=== PATIENT | male | born 1985 | race Asian ===

== ENCOUNTER 2018-04-10 13:52 | Emergency (ER) | payer OTHER ==
[~2018-04-10] VITALS: Ht 180.3 cm; Wt 95.3 kg
--- NOTE | 2018-04-10 15:02 | NUR ---
PT IS IN ROOM #2A. DR TAYLOR EVALUATED THE PT. DR VASHTI BEAVER ) WAS CALLED FOR CONSULT. MESSAGE WAS LEFT. PT IS RESTING IN BED , PARENTS AT THE BEDSIDE.
--- NOTE | 2018-04-10 15:10 | NUR ---
PT STATED THAT [employer] OFFICERS CAME AT THE TIME WHEN THE ACCIDENT HAPPEND. THEY TALKED TO HIM. PT STATED TO POLICE THAT HE DOES NOT WANT TO PRESS CHARGES AGAINST ANYBODY. [employer] OFFICERS TALKED TO THE PT AND LEFT.
--- NOTE | 2018-04-10 15:17 | NUR ---
[facility] WAS CALLED FOR HIGHYER LEVEL OF CARE TRNSFER. TELKED TO ER [employer] [employer] INSTRUCTOR. DR TAYLOR GAVE PT'S INFORMATION TO [facility] SUPERVISOR CONTACT AND SERVICE CLERKS.
--- NOTE | 2018-04-10 15:31 | NUR ---
DR TAYLOR DISCUSSED PT's CASE WITH DR VASHTI BEAVER.
--- NOTE | 2018-04-10 16:02 | NUR ---
[facility] WAS CALLED ([phone]) FOR PT TRNASFER. TALKED TO TRANSFER CENTER REPRESENTSTIVE, THEY DO NOT HAVE ACCEPTING OFTALMOLOGIST. DR TAYLOR NOTIFIED.
--- NOTE | 2018-04-10 16:35 | NUR ---
[facility] WAS KALLED , TALKED TO YOGESH. SHE STATED THEY DO NOT HAVE AVAILABLE BEDS NOW.
--- NOTE | 2018-04-10 16:49 | NUR ---
[facility] WAS CALLED, SPOKE TO ABIGAIL. DR TAYLOR SPOKE TO SIDING INSTALLER ABIGAIL. PT's INFORMATION WAS FAXED ([phone]) TO [facility].
--- NOTE | 2018-04-10 16:56 | NUR ---
Received call from Niru at [facility]. Patient NOT accepted due to "no ophthalmalogist" available at that location. ERMD notified.
--- NOTE | 2018-04-10 17:30 | NUR ---
[facility] WAS CALLED ([phone]) FOR PT's TRANSFER, TALKED TO SCHUYLER. HE STATED THAT THEY DO NOT AVAILABLE BEDS RIGHT NOW. DR TAYLOR NOTIFIED.
[2018-04-10] MEDS ORDERED: ACETAMINOPHEN 325 MG TABLET PO ONE (18:00)
--- NOTE | 2018-04-10 18:01 | NUR ---
[facility] WAS CALLED FOR PT's TRANSFER. PT's INFORMATION WAS FAXED TO [facility] ([phone]), SPOKE TO
[2018-04-10] MEDS ORDERED: ACETAMINOPHEN 325 MG TABLET ONE (18:20)
--- NOTE | 2018-04-10 18:24 | NUR ---
NO RESPONSE FROM CONTACTED HOSPITALS AT THIS TIME. DR TAYLOR NOTIFIED. PT STATED HE WASNTS TO SPEAK WITH DR TAYLOR. DR TAYLOR NOTIFIED.
--- NOTE | 2018-04-10 18:39 | NUR ---
PT TALKED TO HIS PARENTS AND DECIDED TO LEAVE [facility] ER AMA. DR TAYLOR EXPLAINED ALL RISKS OF LEAVING HOSPITAL AMA TO THE PT AND TO HIS PARENTS, THEY VERBALISED FULL UNDERSTANDING. PT SIGNED AMA FORM AND LEFT HOSPITAL BY CAR WITH HIS PARENTS. GAIT IS STABLE. NO NAUSEA, NO VOMITING. PT DENIES PAIN. PLUMBING TECHNICIAN SOB.
[2018-04-10 18:48] VITALS: BP 130/77
== END 2018-04-10 18:50 | disposition left against medical advice (07) ==
LOC: ER 13:55
DX: S02.82XA Fracture of other specified skull and facial bones, left side, initial encounter for closed fracture (principal); S02.2XXA Fracture of nasal bones, initial encounter for closed fracture; S02.40DA Maxillary fracture, left side, initial encounter for closed fracture; Y09 Assault by unspecified means
CPT/HCPCS: 70480; A4663